=== PATIENT | male | born 1955 | race Caucasian/White ===

== ENCOUNTER 2017-05-06 07:11 | Emergency (ER) | payer MEDICARE, MEDICAID ==
[~2017-05-06] VITALS: Ht 167.6 cm; Wt 94.0 kg
[~2017-05-06 07:11] MED LIST: ASPI-1159 PO; FINA5TAB3 PO; OMEP20CA10 PO; SERT50TA PO; SIMV20TA6 PO
[2017-05-06] MEDS ORDERED: SODIUM CHLORIDE 0.9% 1,000 ML IV ONE (07:44)
[2017-05-06 08:06] LABS: HEMATOCRIT. 44.5 % (42.0-52.0); HEMOGLOBIN. 15.6 g/dL (14.0-18.0); MEAN CORPUSCULAR HEMOGLOBIN 30.3 pg (28.0-32.0); MEAN CORPUSCULAR VOLUME 86.8 fL (80.0-94.0); MEAN PLATELET VOLUME 7.3 fl (7.4-10.4); PLATELET 273 x1000/uL (130-400); RED BLOOD CELL COUNT 5.13 mill/uL (4.7-6.1); RED CELL DISTRIBUTION WIDTH 14.6 % (11.6-14.6)
[2017-05-06 08:16] LABS: CARBON DIOXIDE 23 mEq/L (21-32); CHLORIDE 107 mEq/L (98-107); INR 1.1; PROTHROMBIN TIME 11.2 sec (9.4-11.6)
[2017-05-06 08:28] LABS: CLARITY URINE CLEAR (CLEAR); COLOR URINE YELLOW (YELLOW); GLUCOSE URINE NEGATIVE (NEGATIVE); KETONES URINE NEGATIVE (NEGATIVE); LEUKOCYTE ESTERASE URINE TRACE (NEGATIVE); NITRITE URINE NEGATIVE (NEGATIVE); OCCULT BLOOD URINE NEGATIVE (NEGATIVE); PROTEIN URINE 1+ (NEGATIVE); SPECIFIC GRAVITY URINE 1.027 (1.005-1.030)
[2017-05-06] MEDS ORDERED: MORPHINE SULFATE 4 MG/ML CPJ (NOT FOR IM USE) IV ONE (08:45)
[2017-05-06] MEDS ORDERED: ONDANSETRON HCL 4MG/2ML VIAL IV ONE (08:45)
[2017-05-06 08:55] LABS: PLATELET ESTIMATE NORMAL
[2017-05-06] MEDS ORDERED: LEVOFLOXACIN 250MG TABLET PO ONE (11:15)
[2017-05-06 11:41] VITALS: BP 114/67
== END 2017-05-06 11:45 | disposition home or self-care (01) ==
LOC: ER 07:11
DX: J18.9 Pneumonia, unspecified organism (principal); R10.84 Generalized abdominal pain; R51 Headache; N40.0 Benign prostatic hyperplasia without lower urinary tract symptoms; E78.00 Pure hypercholesterolemia, unspecified; Z79.82 Long term (current) use of aspirin
CPT/HCPCS: 36415; 71010; 80053; 81001; 83690; 85025; 85610; 96361; 96374; 96375; 99285; J2270; J2405; J7030

== ENCOUNTER 2017-06-12 06:32 | Emergency (ER) | payer MEDICARE, MEDICAID ==
[~2017-06-12] VITALS: Ht 167.6 cm; Wt 105.0 kg
[2017-06-12] MEDS ORDERED: SODIUM CHLORIDE 0.9% 1,000 ML IV ONE (07:21)
[2017-06-12 07:27] VITALS: BP 127/80
[2017-06-12] MEDS ORDERED: MECLIZINE 25MG TABLET PO ONE (07:30)
[2017-06-12 07:40] LABS: BASOPHILS % 0.2 % (0.0-2.0); EOSINOPHILS % 1.1 % (0.0-5.0); HEMATOCRIT. 46.2 % (42.0-52.0); HEMOGLOBIN. 15.5 g/dL (14.0-18.0); LYMPHOCYTES % 9.5 % (20.0-50.0); MEAN CORPUSCULAR HEMOGLOBIN 29.3 pg (28.0-32.0); MEAN CORPUSCULAR VOLUME 87.5 fL (80.0-94.0); MEAN PLATELET VOLUME 6.9 fl (7.4-10.4); NEUTROPHILS % 85.2 % (40.0-76.0); PLATELET 314 x1000/uL (130-400); RED BLOOD CELL COUNT 5.27 mill/uL (4.7-6.1); RED CELL DISTRIBUTION WIDTH 14.4 % (11.6-14.6)
[2017-06-12 07:42] LABS: CLARITY URINE CLEAR (CLEAR); COLOR URINE YELLOW (YELLOW); KETONES URINE NEGATIVE (NEGATIVE); LEUKOCYTE ESTERASE URINE NEGATIVE (NEGATIVE); NITRITE URINE NEGATIVE (NEGATIVE); OCCULT BLOOD URINE NEGATIVE (NEGATIVE); PROTEIN URINE TRACE (NEGATIVE); SPECIFIC GRAVITY URINE 1.022 (1.005-1.030)
[2017-06-12 07:47] LABS: INR 1.1
[2017-06-12 07:52] LABS: AMMONIA < 25 uMol/L (<32)
[2017-06-12 07:56] LABS: CARBON DIOXIDE 28 mEq/L (21-32); CHLORIDE 104 mEq/L (98-107); ETHANOL BLOOD < 10 mg/dL; TROPONIN I < 0.02 ng/mL (0.00-0.04)
[2017-06-12 08:09] LABS: *AMPHETAMINES SCREEN URINE NEGATIVE (NEGATIVE); *BARBITURATES SCREEN URINE NEGATIVE (NEGATIVE); *BENZODIAZEPINES SCREEN URINE NEGATIVE (NEGATIVE); *COCAINE SCREEN URINE NEGATIVE (NEGATIVE); CANNABINOID URINE SCREEN NEGATIVE (NEGATIVE); METHADONE URINE SCREEN NEGATIVE (NEGATIVE); OPIATES URINE SCREEN NEGATIVE (NEGATIVE); PHENCYCLIDINE URINE SCREEN NEGATIVE (NEGATIVE)
== END 2017-06-12 09:09 | disposition home or self-care (01) ==
LOC: ER 06:32
DX: F15.10 Other stimulant abuse, uncomplicated (principal); R53.1 Weakness; R41.82 Altered mental status, unspecified; R42 Dizziness and giddiness; R00.1 Bradycardia, unspecified; I10 Essential (primary) hypertension; M54.2 Cervicalgia; M25.512 Pain in left shoulder; M25.511 Pain in right shoulder; E78.00 Pure hypercholesterolemia, unspecified; Z85.46 Personal history of malignant neoplasm of prostate; Z79.82 Long term (current) use of aspirin
CPT/HCPCS: 36415; 70450; 71010; 80053; 80305; 81001; 82140; 83690; 83880; 84484; 85025; 85610; 93005; 96360; 99285; G0482; J7030; J8597

== ENCOUNTER 2017-10-09 16:16 | Emergency (ER) | payer MEDICAID, MEDICARE ==
[~2017-10-09] VITALS: Ht 167.6 cm; Wt 93.0 kg
[2017-10-09 17:46] LABS: BASOPHILS % 0.4 % (0.0-2.0); EOSINOPHILS % 3.9 % (0.0-5.0); HEMATOCRIT. 41.6 % (42.0-52.0); LYMPHOCYTES % 19.7 % (20.0-50.0); MEAN CORPUSCULAR HEMOGLOBIN 29.3 pg (28.0-32.0); MEAN CORPUSCULAR VOLUME 87.2 fL (80.0-94.0); MONOCYTES % 4.7 % (2.0-8.0); NEUTROPHILS % 71.3 % (40.0-76.0); PLATELET 446 x1000/uL (130-400); RED BLOOD CELL COUNT 4.77 mill/uL (4.7-6.1); RED CELL DISTRIBUTION WIDTH 14.1 % (11.6-14.6)
[2017-10-09 17:51] LABS: CHLORIDE 103 mEq/L (98-107); INR 1.1
[2017-10-10] MEDS ORDERED: ONDANSETRON HCL 4MG/2ML VIAL IV STA (01:36)
[2017-10-10] MEDS ORDERED: SODIUM CHLORIDE 0.9% 1,000 ML IV ONE (01:36)
[2017-10-10] MEDS ORDERED: KETOROLAC 30MG/ML VIAL IV ONE (04:00)
[2017-10-10] MEDS ORDERED: KETOROLAC 30MG/ML VIAL IV SCH (04:04)
[2017-10-10 04:52] VITALS: BP 132/91
== END 2017-10-10 04:52 | disposition home or self-care (01) ==
LOC: ER 17:30
DX: R51 Headache (principal); R42 Dizziness and giddiness; M25.561 Pain in right knee; M79.89 Other specified soft tissue disorders; R11.2 Nausea with vomiting, unspecified; I10 Essential (primary) hypertension; E78.00 Pure hypercholesterolemia, unspecified; Z85.9 Personal history of malignant neoplasm, unspecified; Z96.651 Presence of right artificial knee joint; Z98.890 Other specified postprocedural states; Z79.82 Long term (current) use of aspirin
CPT/HCPCS: 36415; 70450; 73562; 80053; 84484; 85025; 85610; 93005; 93970; 96361; 96374; 96375; 99285; J1885; J2405; J7030

== ENCOUNTER 2019-09-17 09:36 | Emergency (ER) | payer MEDICAID, MEDICARE ==
[~2019-09-17] VITALS: Ht 175.3 cm; Wt 84.0 kg
[~2019-09-17 09:36] MED LIST changes: -ASPI-1159 PO; +ASPI-1497 PO; -OMEP20CA10 PO; +OMEP20CA14 PO; +SIMV-43 PO; -SIMV20TA6 PO
[2019-09-17 10:26] VITALS: BP 133/86
[2019-09-17] MEDS ORDERED: ALBUTEROL (0.083%) 2.5MG/3ML NEB HHN STA (12:33)
== END 2019-09-17 13:24 | disposition home or self-care (01) ==
LOC: ER 09:36
DX: R05 Cough (principal); R10.9 Unspecified abdominal pain; E78.00 Pure hypercholesterolemia, unspecified; I10 Essential (primary) hypertension; Z79.899 Other long term (current) drug therapy
CPT/HCPCS: 99281

== ENCOUNTER 2019-09-21 02:04 | Emergency (ER) | payer MEDICARE, MEDICAID ==
[~2019-09-21] VITALS: Ht 167.6 cm; Wt 94.0 kg
[2019-09-21 05:56] VITALS: BP 116/83
== END 2019-09-21 06:10 | disposition home or self-care (01) ==
LOC: ER 02:04
DX: J20.9 Acute bronchitis, unspecified (principal)
CPT/HCPCS: 71045; 99283

== ENCOUNTER 2020-08-25 12:27 | Emergency (ER) | payer MEDICAID, MEDICARE ==
[~2020-08-25] VITALS: Ht 167.6 cm; Wt 95.3 kg
[2020-08-25 13:09] VITALS: BP 115/54
[2020-08-25] MEDS ORDERED: ACETAMINOPHEN 325MG TABLET PO STA (13:21)
== END 2020-08-25 14:53 | disposition home or self-care (01) ==
LOC: ER 12:27
DX: R51.9 Headache, unspecified (principal); E78.00 Pure hypercholesterolemia, unspecified
CPT/HCPCS: 99284